=== PATIENT | female | born 2005 | race Caucasian/White ===

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

== ENCOUNTER 2023-03-31 15:30 | Emergency (ER) | payer OTHER ==
[2023-03-31 16:01] VITALS: RESP 18; TEMP 97.5
[2023-03-31] MEDS ORDERED: ONDANSETRON 4 MG/2 ML VIAL IVP STA ×2 (16:23→20:35)
[2023-03-31] MEDS ORDERED: SODIUM CHLORIDE 0.9% 1,000 ML IV STA (16:23)
[2023-03-31] MEDS ORDERED: PYRIDOXINE 100 MG/ML 1 ML VIAL IVP STA (16:23)
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
[2023-03-31 16:55] LABS: Basophils % (A) 0 %; Eosinophils % (A) 0 %; HCT 38.3 % (34.0-46.0); HGB 12.9 gm/dL (11.4-16.0); Lymphocytes # (A) 0.6 k/uL (1.0-4.8); Lymphocytes % (A) 4 %; MCHC 33.7 g/dL (31.0-37.0); MCV 82.9 fL (80.0-100.0); Mean Platelet Volume 7.9; Monocytes # (A) 0.4 k/uL (0-1.0); Monocytes % (A) 3 %; Neutrophils # (A) 14.3 k/uL (1.3-7.7); Neutrophils % (A) 92 %; Platelet Count 281 k/uL (150-450); RBC 4.62 m/uL (3.80-5.40); RDW 12.9 % (11.5-15.5); WBC 15.5 k/uL (4.0-11.0)
[2023-03-31] MEDS ORDERED: FAMOTIDINE 20 MG/2 ML VIAL IV STA (17:01)
[2023-03-31 17:05] LABS: ALT 30 U/L (4-34); AST 31 U/L (14-36); African American GFR (CKD) >90 (>60 ml/min/1.73 sqM); Alkaline Phosphatase 58 U/L (38-126); Anion Gap 11 mmol/L; Blood Urea Nitrogen 14 mg/dL (7-17); Calcium 9.8 mg/dL (8.4-10.2); Carbon Dioxide 23 mmol/L (22-30); Chloride 104 mmol/L (98-107); Glucose 179 mg/dL (74-99); Lipase 37 U/L (23-300); Non-African American GFR(CKD) >90 (>60 ml/min/1.73 sqM); Potassium 3.6 mmol/L (3.5-5.1); Sodium 138 mmol/L (137-145); Total Bilirubin 0.5 mg/dL (0.2-1.3); Total Protein 7.7 g/dL (6.3-8.2)
[2023-03-31 17:16] LABS: INR 1.1 (<1.2); Partial Thromboplastin Time 23.2 sec (22.0-30.0); Prothrombin Time 12.1 sec (10.0-12.5)
[2023-03-31] MEDS ORDERED: METOCLOPRAMIDE 5 MG/ML 2 ML VIAL IVP STA (18:00)
[2023-03-31] MEDS ORDERED: diphenhydrAMINE 50 MG/ML 1 ML VIAL IVP STA (18:00)
[2023-03-31 18:16] LABS: Appearance,Urine Cloudy (Clear); Bacteria,Urine Moderate /hpf; Bilirubin,Urine Negative (Negative); Blood,Urine Negative (Negative); Color,Urine Yellow; Glucose,Urine (UA) 3+ (Negative); Leukocyte Esterase,Urine Negative (Negative); Mucus,Urine Many /hpf; Nitrite,Urine Negative (Negative); PH, Urine 6.5 (5.0-8.0); Protein,Urine 2+ (Negative); RBC,Urine 2 /hpf (0-5); Specific Gravity,Urine 1.026 (1.001-1.035); Squamous Epithelial Cell,Urine 28 /hpf (0-4); Urobilinogen,Urine <2.0 mg/dL (<2.0); WBC,Urine 4 /hpf (0-5)
[2023-03-31 18:20] LABS: HCG,Quantitative Serum 44463.8 mIU/mL
[2023-03-31 18:40] LABS: Ketones,Urine 4+ (Negative)
[2023-03-31] MEDS ORDERED: SODIUM CHLORIDE 0.9% 500 ML 500 ML IV ONE (19:03)
[2023-03-31 20:55] VITALS: BP 130/68; PULSE 82
== END 2023-03-31 20:54 | disposition home or self-care (01) ==
LOC: EC 15:30
DX: O21.9 Vomiting of pregnancy, unspecified (principal); F17.290 Nicotine dependence, other tobacco product, uncomplicated; Z88.0 Allergy status to penicillin; Z91.011 Allergy to milk products; Z3A.08 8 weeks gestation of pregnancy; Z86.59 Personal history of other mental and behavioral disorders
CPT/HCPCS: 36415; 80053; 83690; 85025; 85610; 85730; 81001; 84702; 99284; 96374; 96375 ×4; 96361 ×3; J1200; J3415; J2765; J2405; J3490; 96376

== ENCOUNTER 2023-04-02 10:38 | Emergency (ER) | payer OTHER ==
[2023-04-02 11:01] VITALS: RESP 18
[2023-04-02] MEDS: METOCLOPRAMIDE 5 MG/ML 2 ML VIAL IVP STA (12:23)
[2023-04-02] MEDS: SODIUM CHLORIDE 0.9% 2,000 ML IV STA (12:23)
[2023-04-02 12:45] LABS: Basophils % (A) 0 %; Eosinophils % (A) 0 %; HCT 35.2 % (34.0-46.0); HGB 12.3 gm/dL (11.4-16.0); Lymphocytes # (A) 1.3 k/uL (1.0-4.8); Lymphocytes % (A) 10 %; MCH 28.5 pg (25.0-35.0); MCV 81.6 fL (80.0-100.0); Mean Platelet Volume 8.3; Monocytes # (A) 0.7 k/uL (0-1.0); Monocytes % (A) 5 %; Neutrophils # (A) 10.6 k/uL (1.3-7.7); Neutrophils % (A) 82 %; Platelet Count 241 k/uL (150-450); RBC 4.32 m/uL (3.80-5.40); RDW 13.1 % (11.5-15.5)
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
[2023-04-02 13:11] LABS: ALT 24 U/L (4-34); AST 23 U/L (14-36); African American GFR (CKD) >90 (>60 ml/min/1.73 sqM); Albumin 4.5 g/dL (3.5-5.0); Alkaline Phosphatase 58 U/L (38-126); Anion Gap 4 mmol/L; Blood Urea Nitrogen 10 mg/dL (7-17); Calcium 9.6 mg/dL (8.4-10.2); Carbon Dioxide 31 mmol/L (22-30); Chloride 103 mmol/L (98-107); Glucose 108 mg/dL (74-99); Non-African American GFR(CKD) >90 (>60 ml/min/1.73 sqM); Potassium 3.3 mmol/L (3.5-5.1); Sodium 138 mmol/L (137-145); Total Bilirubin 0.5 mg/dL (0.2-1.3); Total Protein 6.9 g/dL (6.3-8.2)
[2023-04-02 13:12] LABS: Appearance,Urine Turbid (Clear); Bacteria,Urine Few /hpf; Bilirubin,Urine Negative (Negative); Blood,Urine Negative (Negative); Budding Yeast,Urine Many /hpf; Color,Urine Light Yellow; Glucose,Urine (UA) Negative (Negative); Ketones,Urine 2+ (Negative); Leukocyte Esterase,Urine Negative (Negative); Mucus,Urine Rare /hpf; Nitrite,Urine Negative (Negative); PH, Urine 8.5 (5.0-8.0); Protein,Urine 1+ (Negative); Specific Gravity,Urine 1.016 (1.001-1.035); Squamous Epithelial Cell,Urine 2 /hpf (0-4); Urobilinogen,Urine <2.0 mg/dL (<2.0); WBC,Urine 1 /hpf (0-5)
[2023-04-02] MEDS: MAG HYDROX/AL HYDROX/SIMETH 30 ML CUP PO STA (13:50)
[2023-04-02 15:07] VITALS: BP 114/73; PULSE 65; TEMP 98.2
== END 2023-04-02 14:39 | disposition home or self-care (01) ==
LOC: EC 10:38
DX: O99.281 Endocrine, nutritional and metabolic diseases complicating pregnancy, first trimester (principal); E86.0 Dehydration; O99.331 Smoking (tobacco) complicating pregnancy, first trimester; F17.290 Nicotine dependence, other tobacco product, uncomplicated; Z88.0 Allergy status to penicillin; Z91.011 Allergy to milk products; Z86.59 Personal history of other mental and behavioral disorders; Z20.822 Contact with and (suspected) exposure to COVID-19; Z3A.01 Less than 8 weeks gestation of pregnancy
CPT/HCPCS: 99284; 96374; 96361 ×2; 36415; 80053; 85025; 81001; 87636; J2765

== ENCOUNTER 2023-04-26 13:12 | Emergency (ER) | payer OTHER ==
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
[2023-04-26 14:47] VITALS: RESP 18
[2023-04-26] MEDS: METOCLOPRAMIDE 5 MG/ML 2 ML VIAL IVP STA (15:39)
[2023-04-26] MEDS: SODIUM CHLORIDE 0.9% 2,000 ML IV ONE (15:39)
[2023-04-26 15:58] LABS: Basophils % (A) 0 %; Eosinophils % (A) 0 %; HCT 35.6 % (34.0-46.0); HGB 12.3 gm/dL (11.4-16.0); Lymphocytes # (A) 0.3 k/uL (1.0-4.8); Lymphocytes % (A) 3 %; MCH 29.4 pg (25.0-35.0); MCHC 34.6 g/dL (31.0-37.0); Monocytes # (A) 0.3 k/uL (0-1.0); Monocytes % (A) 4 %; Neutrophils # (A) 6.9 k/uL (1.3-7.7); Neutrophils % (A) 91 %; Platelet Count 207 k/uL (150-450); RBC 4.19 m/uL (3.80-5.40); RDW 13.7 % (11.5-15.5); WBC 7.6 k/uL (4.0-11.0)
[2023-04-26 16:07] LABS: African American GFR (CKD) >90 (>60 ml/min/1.73 sqM); Anion Gap 10 mmol/L; Blood Urea Nitrogen 10 mg/dL (7-17); Calcium 8.8 mg/dL (8.4-10.2); Carbon Dioxide 20 mmol/L (22-30); Chloride 106 mmol/L (98-107); Glucose 147 mg/dL (74-99); Non-African American GFR(CKD) >90 (>60 ml/min/1.73 sqM); Potassium 3.4 mmol/L (3.5-5.1); Sodium 136 mmol/L (137-145)
[2023-04-26] MEDS: ONDANSETRON 4 MG/2 ML VIAL IVP STA (16:34)
[2023-04-26] MEDS: FAMOTIDINE 20 MG/2 ML VIAL IV STA (16:36)
[2023-04-26] MEDS: MAG HYDROX/AL HYDROX/SIMETH 30 ML CUP PO STA (17:00)
[2023-04-26 17:26] VITALS: BP 115/79; PULSE 98; TEMP 98.4
== END 2023-04-26 17:04 | disposition home or self-care (01) ==
LOC: EC 13:12
DX: O99.511 Diseases of the respiratory system complicating pregnancy, first trimester (principal); J10.1 Influenza due to other identified influenza virus with other respiratory manifestations; O21.9 Vomiting of pregnancy, unspecified; O99.331 Smoking (tobacco) complicating pregnancy, first trimester; F17.290 Nicotine dependence, other tobacco product, uncomplicated; Z3A.12 12 weeks gestation of pregnancy; Z20.822 Contact with and (suspected) exposure to COVID-19; Z88.0 Allergy status to penicillin; Z91.011 Allergy to milk products
CPT/HCPCS: 80048; 85025; 87636; 99284; 96374; 96375 ×2; 96361; J2765; J2405; J3490; 36415

== ENCOUNTER 2023-04-29 10:22 | Emergency (ER) | payer OTHER ==
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
[2023-04-29 11:33] LABS: HCT 36.6 % (34.0-46.0); HGB 12.1 gm/dL (11.4-16.0); MCH 27.5 pg (25.0-35.0); MCV 83.3 fL (80.0-100.0); Mean Platelet Volume 7.9; Platelet Count 191 k/uL (150-450); RBC 4.39 m/uL (3.80-5.40); RDW 13.6 % (11.5-15.5); WBC 5.2 k/uL (4.0-11.0)
[2023-04-29] MEDS: METOCLOPRAMIDE 5 MG/ML 2 ML VIAL IVP STA (11:36)
[2023-04-29] MEDS: SODIUM CHLORIDE 0.9% 1,000 ML IV STA (11:38)
[2023-04-29 11:52] LABS: ALT 31 U/L (4-34); AST 31 U/L (14-36); African American GFR (CKD) >90 (>60 ml/min/1.73 sqM); Albumin 4.2 g/dL (3.5-5.0); Alkaline Phosphatase 51 U/L (38-126); Anion Gap 10 mmol/L; Blood Urea Nitrogen 7 mg/dL (7-17); Carbon Dioxide 22 mmol/L (22-30); Chloride 104 mmol/L (98-107); Glucose 98 mg/dL (74-99); Non-African American GFR(CKD) >90 (>60 ml/min/1.73 sqM); Potassium 3.4 mmol/L (3.5-5.1); Sodium 136 mmol/L (137-145); Total Bilirubin 0.4 mg/dL (0.2-1.3); Total Protein 6.7 g/dL (6.3-8.2)
[2023-04-29 11:58] LABS: Appearance,Urine Cloudy (Clear); Bacteria,Urine Occasional /hpf; Bilirubin,Urine Negative (Negative); Blood,Urine Negative (Negative); Color,Urine Yellow; Glucose,Urine (UA) Negative (Negative); Hyaline Casts,Urine 1 /lpf (0-2); Ketones,Urine 4+ (Negative); Leukocyte Esterase,Urine Negative (Negative); Mucus,Urine Many /hpf; Nitrite,Urine Negative (Negative); Protein,Urine 1+ (Negative); Specific Gravity,Urine 1.024 (1.001-1.035); Squamous Epithelial Cell,Urine 6 /hpf (0-4); Urobilinogen,Urine <2.0 mg/dL (<2.0); WBC,Urine 4 /hpf (0-5)
[2023-04-29] MEDS: ONDANSETRON 4 MG/2 ML VIAL IVP STA (12:30)
[2023-04-29] MEDS: diphenhydrAMINE 50 MG/ML 1 ML VIAL IVP STA (12:32)
[2023-04-29] MEDS: PYRIDOXINE 100 MG/ML 1 ML VIAL IVP STA (12:34)
--- NOTE | 2023-04-29 14:54 | US ---
EXAMINATION TYPE: Ultrasound OB <= 14 week fetus DATE OF EXAM: 04/29/2023 2:14 PM COMPARISON: NONE CLINICAL INDICATION: Female, 17 years old with history of abdominal cramping; Patient has the flu; N/ V EXAM PERFORMED: Transabdominal (TA) EXAM MEASUREMENTS: GESTATIONAL AGE / DATING Physician Established: Not yet established Dates by LMP: 01/29/23 (12 weeks/6 days) EDC: 11/05/23 Dates by First Scan: No previous this is first scan at this facility Dates by Current Scan for: (11 weeks/2 days) EDC: 11/16/23 MATERNAL ANATOMY Uterus: 11.2 x 8.7 x 8.5 cm Right Ovary: 2.5 x 2.4 x 1.9 cm Left Ovary: 2.9 x 2.1 x 1.8 cm Post CDS / Adnexa: wnl Presence of free fluid: no Presence of corpus luteal cyst: no Presence of subchorionic bleed: no GESTATION / SURVEY CRL: 4.45 (11weeks/2 days) MSD: WNL Yolk Sac (normal less than 6mm): 0.48 cm Heart Rate: 176bpm Rhythm: normal IUP: Viable IUP Date of LMP: 01/29/23 Beta HcG (if available): Not available at this time Were note an expanding amnion and likely early forming placenta and suspected small 1.6 cm perigestat ional bleed left lateral aspect. IMPRESSION: 1. Single live intrauterine with estimated gestational age of 12 weeks 6 days by LMP. Curre nt ultrasound biometry is discordant, smaller at 11 weeks 2 days. Correlate as to accuracy of recall of LMP. 2. Small left lateral perigestational bleed measuring 1.6 cm. 3. Borderline tachycardia at 176 BPM. Given these 2 findings, consider short interval follow-up . 4. Otherwise, complete survey recommended at 18-20 weeks.
[2023-04-29 15:56] VITALS: BP 102/62; PULSE 91; RESP 18; TEMP 98.5
== END 2023-04-29 15:43 | disposition home or self-care (01) ==
LOC: EC 10:22
DX: O21.9 Vomiting of pregnancy, unspecified (principal); O99.511 Diseases of the respiratory system complicating pregnancy, first trimester; J11.1 Influenza due to unidentified influenza virus with other respiratory manifestations; O99.331 Smoking (tobacco) complicating pregnancy, first trimester; F17.290 Nicotine dependence, other tobacco product, uncomplicated; Z86.59 Personal history of other mental and behavioral disorders; Z3A.12 12 weeks gestation of pregnancy; Z88.0 Allergy status to penicillin; Z91.011 Allergy to milk products
CPT/HCPCS: 36415; 80053; 85027; 81001; 84702; 76801; 99285; 96374; 96375 ×3; 96361 ×2; J1200; J3415; J2765; J2405

== ENCOUNTER 2023-05-29 17:15 | Emergency (ER) | payer OTHER ==
[2023-05-29 18:45] LABS: Basophils % (A) 0 %; Eosinophils % (A) 0 %; HCT 40.7 % (34.0-46.0); HGB 13.2 gm/dL (11.4-16.0); Lymphocytes % (A) 7 %; MCH 27.9 pg (25.0-35.0); MCHC 32.5 g/dL (31.0-37.0); MCV 85.9 fL (80.0-100.0); Mean Platelet Volume 7.7; Monocytes # (A) 0.4 k/uL (0-1.0); Monocytes % (A) 2 %; Neutrophils % (A) 89 %; Platelet Count 249 k/uL (150-450); RBC 4.74 m/uL (3.80-5.40); WBC 15.7 k/uL (4.0-11.0)
[2023-05-29 18:59] LABS: ALT 18 U/L (4-34); AST 22 U/L (14-36); African American GFR (CKD) >90 (>60 ml/min/1.73 sqM); Albumin 4.8 g/dL (3.5-5.0); Alkaline Phosphatase 72 U/L (38-126); Anion Gap 13 mmol/L; Blood Urea Nitrogen 10 mg/dL (7-17); Calcium 9.7 mg/dL (8.4-10.2); Carbon Dioxide 18 mmol/L (22-30); Chloride 105 mmol/L (98-107); Glucose 123 mg/dL (74-99); Non-African American GFR(CKD) >90 (>60 ml/min/1.73 sqM); Sodium 136 mmol/L (137-145); Total Bilirubin 0.4 mg/dL (0.2-1.3); Total Protein 7.8 g/dL (6.3-8.2)
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
[2023-05-29 19:39] LABS: HCG,Quantitative Serum 29553.3 mIU/mL
[2023-05-29] MEDS: ONDANSETRON 4 MG/2 ML VIAL IVP STA (19:44)
[2023-05-29] MEDS: DEXTROSE 5%-0.9% NACL 1,000 ML IV SCH (20:17)
--- NOTE | 2023-05-29 20:46 | US ---
EXAMINATION TYPE: US OB >= 14 wk fetus DATE OF EXAM: 05/29/2023 COMPARISON: None CLINICAL INDICATION: Female, 17 years old with history of 15 weeks . abdominal pain; Vomiting . TECHNIQUE: Transabdominal (TA) ultrasound of gravid uterus GESTATIONAL AGE / DATING Physician Established: ( weeks/ days) EDC: Dates by LMP: ( weeks/ days) EDC: Dates by First Scan: ( weeks/ days) EDC: Dates by Current Scan: (15 weeks/4 days) EDC: 11/16/2023 Beta HCG (if available): SURVEY IUP: Single PLACENTA: Anterior PREVIA: No Previa ELISHA: 13.1 cm Normal CERVICAL LENGTH (transabdominal: norm > 3.0cm): 3.4 cm, and appears closed BIOMETRY LIE: Transverse with head maternal left BPD: 2.9 cm 15 weeks / 2 days HC: 11.1 cm 15 weeks / 3 days AC: 9.7 cm 15 weeks / 5 days FL: 1.7 cm 15 weeks / 1 days ESTIMATED WEIGHT IN GRAMS: 124.2 grams ESTIMATED WEIGHT IN LBS/OZ: 0 lbs. 4 oz. WEIGHT PERCENTAGE BASED ON ESTABLISHED DATES: 49% HC/AC: 1.2 Normal FL/AC: 17.8 HEART RATE: 155 bpm RHYTHM: Normal ++ No detailed anatomic survey is performed at this time; recommend dedicated anatomy scan when appropriate. Possible perigestational hematoma = 5.2 x 4.3 x 1.1cm IMPRESSION: 1. Single, live intrauterine measuring 15 weeks 4 days, CATHERINE 11/16/2023. 2. Perigestational hematoma is suggested. Recommend follow-up.
[2023-05-29] MEDS: ACETAMINOPHEN TAB 325 MG TAB PO STA (21:16)
[2023-05-29] MEDS: METOCLOPRAMIDE 5 MG/ML 2 ML VIAL IVP STA (21:17)
[2023-05-29 21:39] LABS: Appearance,Urine Clear (Clear); Bacteria,Urine Occasional /hpf; Bilirubin,Urine Negative (Negative); Blood,Urine Negative (Negative); Color,Urine Light Yellow; Glucose,Urine (UA) 4+ (Negative); Leukocyte Esterase,Urine Negative (Negative); Mucus,Urine Few /hpf; Nitrite,Urine Negative (Negative); Protein,Urine 1+ (Negative); RBC,Urine 2 /hpf (0-5); Specific Gravity,Urine 1.034 (1.001-1.035); Squamous Epithelial Cell,Urine 4 /hpf (0-4); Urobilinogen,Urine <2.0 mg/dL (<2.0); WBC,Urine 2 /hpf (0-5)
[2023-05-29 21:41] LABS: Ketones,Urine 4+ (Negative)
[2023-05-29] MEDS: PROMETHAZINE SUPPOSITORY 25 MG SUPP RECTAL STA (22:12)
[2023-05-29 22:22] VITALS: RESP 16
[2023-05-30 00:28] VITALS: BP 103/69; PULSE 100; TEMP 98.3
== END 2023-05-30 00:26 | disposition home or self-care (01) ==
LOC: EC 17:15
DX: O99.512 Diseases of the respiratory system complicating pregnancy, second trimester (principal); J11.1 Influenza due to unidentified influenza virus with other respiratory manifestations; Z88.0 Allergy status to penicillin; Z91.011 Allergy to milk products; Z3A.15 15 weeks gestation of pregnancy
CPT/HCPCS: 36415; 80053; 85025; 81001; 84702; 87636; 76805; 99284; 96374; 96375; 96361 ×4; J2765; J2405

== ENCOUNTER 2023-05-30 11:29 | Observation (INO) | payer OTHER ==
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
[2023-05-30] MEDS: ONDANSETRON 4 MG/2 ML VIAL IVP STA (12:15)
[2023-05-30] MEDS: SODIUM CHLORIDE 0.9% 2,000 ML IV STA (12:15)
[2023-05-30 12:41] LABS: Basophils % (A) 0 %; Eosinophils % (A) 0 %; HCT 35.1 % (34.0-46.0); HGB 12.1 gm/dL (11.4-16.0); Lymphocytes # (A) 0.9 k/uL (1.0-4.8); Lymphocytes % (A) 5 %; MCH 28.7 pg (25.0-35.0); MCHC 34.5 g/dL (31.0-37.0); MCV 83.2 fL (80.0-100.0); Monocytes # (A) 0.6 k/uL (0-1.0); Monocytes % (A) 3 %; Neutrophils # (A) 18.2 k/uL (1.3-7.7); Neutrophils % (A) 91 %; Platelet Count 283 k/uL (150-450); RBC 4.22 m/uL (3.80-5.40)
[2023-05-30 12:51] LABS: AST 25 U/L (14-36); African American GFR (CKD) >90 (>60 ml/min/1.73 sqM); Albumin 4.7 g/dL (3.5-5.0); Alkaline Phosphatase 59 U/L (38-126); Anion Gap 12 mmol/L; Blood Urea Nitrogen 15 mg/dL (7-17); Carbon Dioxide 24 mmol/L (22-30); Chloride 102 mmol/L (98-107); Glucose 144 mg/dL (74-99); Non-African American GFR(CKD) >90 (>60 ml/min/1.73 sqM); Potassium 3.2 mmol/L (3.5-5.1); Sodium 138 mmol/L (137-145); Total Bilirubin 0.3 mg/dL (0.2-1.3); Total Protein 7.4 g/dL (6.3-8.2)
[2023-05-30 12:57] LABS: ALT 22 U/L (4-34)
[2023-05-30 13:13] LABS: Amorphous Sediment,Urine Rare /hpf; Appearance,Urine Cloudy (Clear); Bilirubin,Urine Negative (Negative); Blood,Urine Negative (Negative); Color,Urine Light Yellow; Glucose,Urine (UA) 1+ (Negative); Ketones,Urine 1+ (Negative); Leukocyte Esterase,Urine Negative (Negative); Mucus,Urine Few /hpf; Nitrite,Urine Negative (Negative); Protein,Urine 1+ (Negative); RBC,Urine <1 /hpf (0-5); Specific Gravity,Urine 1.025 (1.001-1.035); Squamous Epithelial Cell,Urine 1 /hpf (0-4); Urobilinogen,Urine <2.0 mg/dL (<2.0); WBC,Urine 6 /hpf (0-5)
[2023-05-30 13:37] LABS: HCG,Quantitative Serum 27622.8 mIU/mL
[2023-05-30] MEDS: METOCLOPRAMIDE 5 MG/ML 2 ML VIAL IVP STA (13:59)
[2023-05-30] MEDS ORDERED: NALOXONE 0.4 MG/ML 1 ML VIAL IV PRN (14:40)
[2023-05-30] MEDS: SODIUM CHLORIDE 0.9% 1,000 ML IV SCH (15:08)
[2023-05-30] MEDS: OSELTAMIVIR 75 MG CAP PO STA (15:08)
[2023-05-30] MEDS: CALCIUM CARBONATE 500 MG CHEWABLE PO PRN (18:26)
[2023-05-30] MEDS: FAMOTIDINE 20 MG/2 ML VIAL IV SCH (20:04)
[2023-05-30] MEDS: ONDANSETRON 4 MG/2 ML VIAL IVP PRN (21:09)
[2023-05-31] MEDS: METOCLOPRAMIDE 5 MG/ML 2 ML VIAL IVP STA (07:59)
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
[2023-05-31] MEDS: OSELTAMIVIR 75 MG CAP PO SCH ×2 (09:42→09:50)
[2023-05-31] MEDS: diphenhydrAMINE 50 MG/ML 1 ML VIAL IVP STA (09:52)
[2023-05-31 16:46] VITALS: RESP 16
[2023-05-31] MEDS ORDERED: FAMOTIDINE 20 MG/2 ML VIAL IV SCH (21:00)
[2023-05-31] MEDS: ACETAMINOPHEN TAB 500 MG TAB PO PRN (21:29)
[2023-05-31] MEDS: diphenhydrAMINE 50 MG/ML 1 ML VIAL IVP PRN (23:49)
--- NOTE | 2023-06-01 08:54 | P.DS ---
Providers Date of admission: 05/30/23 16:19 Expected date of discharge: 06/01/23 Attending physician: Kathy Monson Primary care physician: Jean-Claude Bryant - Discharge Diagnosis(es) (1) 15 weeks gestation of Current Visit: Yes Status: Acute (2) Influenza A Current Visit: Yes Status: Acute Hospital Course: The patient is a 17-year-old 1 para 0 admitted at approximately 16 weeks of gestation after presenting to the emergency room with intractable nausea and vomiting and found with influenza A. She is admitted for IV fluid management and antiemetics. She was started on Tamiflu immediately and, over the course of the next 1 to 2 days had significant resolution of her symptoms. This morning, she is feeling significantly better and is tolerating a regular diet as well as able to hydrate orally without difficulty. She is deemed stable for discharge on hospital day #3 and was discharged home to follow-up in the office as previously scheduled in approximately 2 weeks. She is discharged home on Tamiflu 75 mg twice daily for a total of 7 days, approximately 5 more days of medication provided. She is to continue with vitamins and all other medications taken during the . She has had no complaints and has had documentation of wellbeing by ultrasound in the emergency room. Her initial white count was moderately elevated and is pending this morning. Instructions included calling for any significant increase in symptoms but to continue to hydrate orally. Procedures: #1. IV hydration #2. IV antiemetics Patient Condition at Discharge: Good Plan - Discharge Summary New Discharge Prescriptions: No Action Ondansetron Odt [Zofran Odt] 4 mg PO DIRECTED PRN PRN Reason: Nausea Oseltamivir [Tamiflu] 75 mg PO DIRECTED Promethazine Suppository [Phenergan] 25 mg RECTAL DIRECTED PRN PRN Reason: Nausea Discharge Medication List Ondansetron Odt [Zofran Odt] 4 mg PO DIRECTED PRN 05/30/23 [History] Oseltamivir [Tamiflu] 75 mg PO DIRECTED 05/30/23 [History] Promethazine Suppository [Phenergan] 25 mg RECTAL DIRECTED PRN 05/30/23 [History] Follow up Appointment(s)/Referral(s): Jean-Claude Bryant MD [Primary Care Provider] - 1-2 Days Fam Haynes MD [STAFF PHYSICIAN] - 2 Weeks Discharge Disposition: HOME SELF-CARE
[2023-06-01 09:25] VITALS: BP 109/71; PULSE 77; TEMP 97.7
== END 2023-06-01 11:00 | disposition home or self-care (01) ==
LOC: EC 11:29 → 6NMEDSUR 16:19
PROVIDERS: ADMIT Obstetrics & Gynecology; ATTEND Obstetrics & Gynecology
DX: O99.512 Diseases of the respiratory system complicating pregnancy, second trimester (principal); J10.1 Influenza due to other identified influenza virus with other respiratory manifestations; O21.9 Vomiting of pregnancy, unspecified; O99.342 Other mental disorders complicating pregnancy, second trimester; F41.9 Anxiety disorder, unspecified; Z3A.15 15 weeks gestation of pregnancy; Z87.891 Personal history of nicotine dependence; Z88.0 Allergy status to penicillin
CPT/HCPCS: 96376 ×3; 96361 ×3; 96375 ×3; 96374; 99285; 36415; 80053; 83605; 85025; 81001; 84702; 87040; G0378 ×3; J1200; J2765 ×2; J2405 ×3; J3490 ×2

== ENCOUNTER 2023-06-02 13:32 | Emergency (ER) | payer OTHER ==
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
[2023-06-02] MEDS: SODIUM CHLORIDE 0.9% 1,000 ML IV STA (14:33)
[2023-06-02] MEDS: ONDANSETRON 4 MG/2 ML VIAL IVP STA (14:37)
[2023-06-02] MEDS: diphenhydrAMINE 50 MG/ML 1 ML VIAL IVP STA (14:37)
[2023-06-02 14:46] LABS: HCT 33.8 % (34.0-46.0); HGB 11.3 gm/dL (11.4-16.0); MCH 28.3 pg (25.0-35.0); MCHC 33.5 g/dL (31.0-37.0); MCV 84.7 fL (80.0-100.0); Platelet Count 215 k/uL (150-450); RDW 13.6 % (11.5-15.5); WBC 10.5 k/uL (4.0-11.0)
[2023-06-02 15:07] LABS: Amorphous Sediment,Urine Rare /hpf; Appearance,Urine Cloudy (Clear); Bacteria,Urine Many /hpf; Bilirubin,Urine Negative (Negative); Blood,Urine Negative (Negative); Color,Urine Light Yellow; Glucose,Urine (UA) Negative (Negative); Ketones,Urine 2+ (Negative); Leukocyte Esterase,Urine Negative (Negative); Mucus,Urine Few /hpf; Nitrite,Urine Negative (Negative); Protein,Urine Trace (Negative); RBC,Urine <1 /hpf (0-5); Specific Gravity,Urine 1.017 (1.001-1.035); Squamous Epithelial Cell,Urine 5 /hpf (0-4); Urobilinogen,Urine <2.0 mg/dL (<2.0); WBC,Urine 3 /hpf (0-5)
[2023-06-02 15:08] LABS: ALT 25 U/L (4-34); AST 23 U/L (14-36); African American GFR (CKD) >90 (>60 ml/min/1.73 sqM); Albumin 3.9 g/dL (3.5-5.0); Alkaline Phosphatase 45 U/L (38-126); Anion Gap 8 mmol/L; Blood Urea Nitrogen 5 mg/dL (7-17); Calcium 8.8 mg/dL (8.4-10.2); Carbon Dioxide 21 mmol/L (22-30); Chloride 106 mmol/L (98-107); Glucose 91 mg/dL (74-99); Non-African American GFR(CKD) >90 (>60 ml/min/1.73 sqM); Sodium 135 mmol/L (137-145); Total Bilirubin 0.5 mg/dL (0.2-1.3); Total Protein 6.4 g/dL (6.3-8.2)
[2023-06-02 15:12] LABS: Potassium 3.6 mmol/L (3.5-5.1)
[2023-06-02] MEDS: CALCIUM CARBONATE 500 MG CHEWABLE PO PRN (15:21)
[2023-06-05 00:30] VITALS: BP 106/65; PULSE 97; RESP 18; TEMP 97.9
== END 2023-06-02 16:44 ==
LOC: EC 13:32
DX: O21.9 Vomiting of pregnancy, unspecified (principal); O99.332 Smoking (tobacco) complicating pregnancy, second trimester; F17.290 Nicotine dependence, other tobacco product, uncomplicated; Z88.0 Allergy status to penicillin; Z91.011 Allergy to milk products; Z3A.16 16 weeks gestation of pregnancy
CPT/HCPCS: 99284; 96374; 96375; 96361; 36415; 80053; 83605; 85027; 81001; J1200; J2405

== ENCOUNTER 2023-07-26 20:05 | Outpatient (CLI) | payer OTHER ==
[2023-07-26] MEDS: LACTATED RINGERS 1,000 ML IV ONE (20:10)
[2023-07-26] MEDS: ONDANSETRON 4 MG/2 ML VIAL IVP STA (20:32)
[2023-07-26] MEDS: FAMOTIDINE 20 MG/2 ML VIAL IV SCH (20:33)
[2023-07-26] MEDS: CAPSAICIN 0.025% CREAM 60 GM TUBE TOPICAL SCH (21:10)
[2023-07-26] MEDS ORDERED: CAPSAICIN 0.025% CREAM 60 GM TUBE TOPICAL SCH (22:00)
[2023-07-26 22:03] LABS: Appearance,Urine Clear (Clear); Bilirubin,Urine Negative (Negative); Blood,Urine Negative (Negative); Color,Urine Light Yellow; Glucose,Urine (UA) 2+ (Negative); Leukocyte Esterase,Urine Negative (Negative); Nitrite,Urine Negative (Negative); PH, Urine 6.5 (5.0-8.0); Protein,Urine Trace (Negative); Specific Gravity,Urine 1.022 (1.001-1.035); Urobilinogen,Urine <2.0 mg/dL (<2.0)
[2023-07-26 22:08] LABS: Ketones,Urine 4+ (Negative)
[2023-07-26 23:08] VITALS: BP 112/82; PULSE 102; RESP 16; TEMP 97.2
--- NOTE | 2023-09-14 14:56 | P.MSEPDOC ---
Presenting Problems - Arrival Data Date of Arrival on Unit: 07/26/23 Time of Arrival on Unit: 20:05 Mode of Transport: Wheelchair - Complaint OB-Reason for Admission/Chief Complaint: Hyperemesis, Acute Nausea/Vomiting Comment: Patient arrived to triage with nausea that started this morning. Patient denies diarrhea. Patient states she has had slight cramping in abdominal pain is 2/10. Patient states that her mother was sick earlier in the day. Patient admits to marijuana smoking and cyclic vomiting in the past. Medical History - Information : 1 Para: 0 - Gestational Age Gestational Age by CATHERINE (wks/days): 23 Weeks and 4 Days Review of Systems - Review of Systems Constitutional: No problems Breast: No problems ENT: No problems Cardiovascular: No problems Respiratory: No problems Gastrointestinal: Pain Genitourinary: No problems Musculoskeletal: No problems Neurological: No problems Skin: No problems Vital Signs - Temperature Temperature: 97.2 F Temperature Source: Temporal Artery Scan - Pulse Pulse Oximetery Pulse Rate: 102 Pulse Assessment Method: Pulse Oximetry - Respirations Respiratory Rate: 16 Oxygen Delivery Method: Room Air - Blood Pressure Right Arm Blood Pressure: 112/82 Blood Pressure Mean: 92 Medical Screen Scoring - Assessment - Baby A Baseline FHR: 150 Heart Rate - NICHD Category: Category I (Normal) Physician Notification - Physician Notified Physician Notified Date: 07/26/23 Physician Notified Time: 20:12 Physician: Yaritza Esposito New Order Received: Yes - Notification Comment Comment: Radha HICKS called and talked to Dr. Esposito- pt. information given, orders for UA, 1 Liter LR bolus, 4mg IVP Zofran, and 20mg Pepcid IVP at this time RN spoke with Dr. Esposito regarding patient vomitng after admin of zofran and pepcid IV. Dr. Esposito aware of marijuana use and patients history of cyclic vomiting. 2100 Capsaicin Cream ordered to be placed on epigastric area. RN spoke with Dr. Esposito regarding patient vomitng after admin of zofran and pepcid IV. Dr. Esposito aware of marijuana use and patients history of cyclic vomiting. Capsaicin Cream ordered to be placed on epigastric area. 2200Drouillard aware of critical urine lab, patient is in bed sleeping at this time. Patient stated she felt much better. Dr. Esposito ordered Patient to be discharged home. significant other at bedside patient and significant other verbally aware of discharge instructions and when to seek medical attention. Maternal Triage Index - Non-Urgent/Priority 4 Non-Urgent Priority 4: Yes Criteria Met for Priority 4: Patient arrived to triage with nausea that started this morning. Patient denies diarrhea. Patient states she has had slight cramping in abdominal pain is 2/10. Patient states that her mother was sick earlier in the day. Patient admits to marijuana smoking and cyclic vomiting in the past. Disposition - Disposition OB Disposition: Discharge to home Discharge Date: 07/26/23 Discharge Time: 22:15 I agree with the RN Medical Screening Exam: Yes Physician's MSE Comment: I have neither seen nor examined the patient Case reviewed; plan agreed upon as documented in EMR&OBIX.: Yes Diagnosis: MATERNAL CARE FOR PROBLEM, UNSP, THIRD * DO NOT USE *
== END 2023-07-26 22:15 | disposition home or self-care (01) ==
LOC: FBPOP 20:05
PROVIDERS: ATTEND Obstetrics & Gynecology
DX: O21.9 Vomiting of pregnancy, unspecified (principal); Z3A.23 23 weeks gestation of pregnancy; Z88.0 Allergy status to penicillin; Z91.011 Allergy to milk products
CPT/HCPCS: 96361; 96374; 96375; 81003; G0463; J2405; J3490; 36415; 99214

== ENCOUNTER 2023-07-27 09:16 | Outpatient (CLI) | payer OTHER ==
[2023-07-27 09:55] LABS: Appearance,Urine Clear (Clear); Bilirubin,Urine Negative (Negative); Blood,Urine Negative (Negative); Color,Urine Light Yellow; Glucose,Urine (UA) 4+ (Negative); Leukocyte Esterase,Urine Negative (Negative); Nitrite,Urine Negative (Negative); Protein,Urine Trace (Negative); Specific Gravity,Urine 1.027 (1.001-1.035); Urobilinogen,Urine <2.0 mg/dL (<2.0)
[2023-07-27 10:05] LABS: Cocaine Screen,Urine Not Detected (NotDetected); Opiate Screen,Urine Not Detected (NotDetected); Phencyclidine Screen,Urine Not Detected (NotDetected); Urn Cannabinoid Scrn Detected (NotDetected)
[2023-07-27 10:06] LABS: Amphetamine Screen,Urine Not Detected (NotDetected); Barbiturate Screen,Urine Not Detected (NotDetected); Benzodiazepines Screen,Urine Not Detected (NotDetected); Methadone Screen, Urine Not Detected (NotDetected); Oxycodone Screen, Urine Not Detected (NotDetected); Tricyclic Antidepressant,Urine Not Detected (NotDetected)
[2023-07-27] MEDS: LACTATED RINGERS 1,000 ML IV ONE (10:09)
[2023-07-27] MEDS: ONDANSETRON 4 MG/2 ML VIAL IVP STA (10:16)
[2023-07-27] MEDS: PANTOPRAZOLE 40 MG/10 ML VIAL IVP ONE (10:23)
[2023-07-27 10:38] LABS: Ketones,Urine 4+ (Negative)
[2023-07-27 13:30] VITALS: BP 117/70; PULSE 90; RESP 18; TEMP 98.3
--- NOTE | 2023-07-31 09:46 | P.MSEPDOC ---
Presenting Problems - Arrival Data Date of Arrival on Unit: 07/27/23 Time of Arrival on Unit: 09:16 Mode of Transport: Ambulatory - Complaint OB-Reason for Admission/Chief Complaint: Acute Nausea/Vomiting Comment: Pt with hx marijuana use. cyclic vomiting. Medical History - Information : 1 Para: 0 Term: 0 : 0 Abortions: Spontaneous or Elective: 0 Number of Living Children: 0 - Gestational Age Gestational Age by CATHERINE (wks/days): 23 Weeks and 5 Days - History Complications: Smoker Comment: + marijuana on UDS today Review of Systems - Review of Systems Constitutional: No problems Breast: No problems ENT: No problems Cardiovascular: No problems Respiratory: No problems Gastrointestinal: No problems Genitourinary: No problems Musculoskeletal: No problems Neurological: No problems Skin: No problems Vital Signs - Temperature Temperature: 98.3 F Temperature Source: Temporal Artery Scan - Pulse Right Sitting Brachial Pulse Rate: 90 Pulse Assessment Method: Pulse Oximetry - Respirations Respiratory Rate: 18 Oxygen Delivery Method: Room Air O2 Sat by Pulse Oximetry: 99 - Blood Pressure Right Arm Sitting Blood Pressure: 117/70 Blood Pressure Mean: 85 Blood Pressure Source: Automatic Cuff Medical Screen Scoring - Uterine Contractions Resting: Soft to palpation - Assessment - Baby A Baseline FHR: 145 Physician Notification - Physician Notified Physician Notified Date: 07/27/23 Physician Notified Time: 12:00 Physician: Fam Haynes Order Received: Yes (dc home. Follow up as scheduled.) Maternal Triage Index - Maternal Triage Index Presenting for scheduled procedure w/no complaint: No - Stat/Priority 1 Stat Priority 1: No - Urgent/Priority 2 Urgent Priority 2: No - Prompt/Priority 3 Prompt Priority 3: No - Non-Urgent/Priority 4 Non-Urgent Priority 4: Yes Criteria Met for Priority 4: vomiting. treated in triage last night for same complaints. IV fluids x3 liters today, protonix IV, Zofran IV. pt dc with script for po Zofran. Disposition - Disposition OB Disposition: Discharge to home, Written follow up instructions reviewed Discharge Date: 07/27/23 Discharge Time: 12:15 I agree with the RN Medical Screening Exam: Yes Physician's MSE Comment: I have neither seen nor examined the patient. Case reviewed; plan agreed upon as documented in EMR&OBIX.: Yes Diagnosis: RELATED CONDITIONS, UNSPECIFIED, SECOND TRIMESTER
== END 2023-07-27 12:15 | disposition home or self-care (01) ==
LOC: FBPOP 09:16
PROVIDERS: ATTEND Obstetrics & Gynecology
DX: O21.9 Vomiting of pregnancy, unspecified (principal); O99.332 Smoking (tobacco) complicating pregnancy, second trimester; F17.200 Nicotine dependence, unspecified, uncomplicated; Z3A.23 23 weeks gestation of pregnancy; Z88.0 Allergy status to penicillin; Z91.011 Allergy to milk products
CPT/HCPCS: 96361; 96374; 96375; 81003; 80306; G0463; J2405; C9113; 99214

== ENCOUNTER 2023-09-13 13:27 | Outpatient (CLI) | payer OTHER ==
[2023-09-13] MEDS: FAMOTIDINE 20 MG/2 ML VIAL IV STA (14:28)
[2023-09-13] MEDS: LACTATED RINGERS 1,000 ML IV ONE (14:28)
[2023-09-13] MEDS: CAPSAICIN 0.025% CREAM 60 GM TUBE TOPICAL SCH (15:08)
[2023-09-13] MEDS: ONDANSETRON 4 MG/2 ML VIAL IVP STA (15:42)
[2023-09-13 17:10] VITALS: BP 129/58; PULSE 95; RESP 18; TEMP 97.9
--- NOTE | 2023-09-13 22:06 | P.MSEPDOC ---
Presenting Problems - Arrival Data Date of Arrival on Unit: 09/13/23 Time of Arrival on Unit: 13:27 Mode of Transport: Ambulatory - Complaint OB-Reason for Admission/Chief Complaint: Acute Nausea/Vomiting Comment: pt presents to triage for n/v since 299 this am Medical History - Information : 1 Para: 0 Term: 0 : 0 Abortions: Spontaneous or Elective: 0 Number of Living Children: 0 - Gestational Age Gestational Age by CATHERINE (wks/days): 30 Weeks and 4 Days - History Comment: marijuana use Review of Systems - Review of Systems Constitutional: No problems Breast: No problems ENT: No problems Cardiovascular: No problems Respiratory: No problems Gastrointestinal: No problems Genitourinary: No problems Musculoskeletal: No problems Neurological: No problems Skin: No problems Vital Signs - Temperature Temperature: 97.9 F Temperature Source: Temporal Artery Scan - Pulse Right Brachial Pulse Rate: 95 Pulse Assessment Method: Automatic Cuff - Respirations Respiratory Rate: 18 Oxygen Delivery Method: Room Air - Blood Pressure Right Arm Blood Pressure: 129/58 Blood Pressure Mean: 81 Blood Pressure Source: Automatic Cuff Medical Screen Scoring - Assessment - Baby A Baseline FHR: 135 Heart Rate - NICHD Category: Category I (Normal) NST: Reactive Physician Notification - Physician Notified Physician Notified Date: 09/13/23 Physician Notified Time: 16:44 Physician: Kathy Monson - Notification Comment Comment: pt given 2 liters of LR, dose of pepcid and zofran, decreased vomiting, still nauseous, pt discharged home with instructions to drink gatorade to replace electrolytes, and follow up in the office on thursday at scheduled appt with Dr. Haynes, also instructed to stop using marijuana as it makes her n/v worse, Maternal Triage Index - Maternal Triage Index Presenting for scheduled procedure w/no complaint: No - Stat/Priority 1 Stat Priority 1: No - Urgent/Priority 2 Urgent Priority 2: Yes Provider Notified: Kathy Monson Provider Notified Time: 13:55 Criteria Met for Priority 2: pt presents to triage for n/v since 299 this am Disposition - Disposition OB Disposition: Triage, Discharge to home, Written follow up instructions reviewed Discharge Date: 09/13/23 Discharge Time: 16:50 I agree with the RN Medical Screening Exam: Yes Case reviewed; plan agreed upon as documented in EMR&OBIX.: Yes Diagnosis: NAUSEA WITH VOMITING, UNSPECIFIED
== END 2023-09-13 16:50 | disposition home or self-care (01) ==
LOC: FBPOP 13:27
PROVIDERS: ATTEND Obstetrics & Gynecology
DX: O21.9 Vomiting of pregnancy, unspecified (principal); O99.323 Drug use complicating pregnancy, third trimester; F12.90 Cannabis use, unspecified, uncomplicated; Z3A.30 30 weeks gestation of pregnancy; Z88.0 Allergy status to penicillin; Z91.011 Allergy to milk products
CPT/HCPCS: 59025; 96361; 96374; 96375; G0463; J2405; J3490; 99214

== ENCOUNTER 2023-09-15 12:38 | Outpatient (CLI) | payer OTHER ==
[2023-09-15] MEDS: LACTATED RINGERS 1,000 ML BAG IV STA (13:20)
[2023-09-15] MEDS: FAMOTIDINE 20 MG/2 ML VIAL IV STA (13:36)
[2023-09-15] MEDS: ONDANSETRON 4 MG/2 ML VIAL IVP STA (13:37)
[2023-09-15 13:41] LABS: Basophils % (A) 0 %; Eosinophils % (A) 0 %; HCT 34.6 % (34.0-46.0); HGB 11.5 gm/dL (11.4-16.0); Lymphocytes # (A) 1.5 k/uL (1.0-4.8); Lymphocytes % (A) 9 %; MCH 27.9 pg (25.0-35.0); MCHC 33.4 g/dL (31.0-37.0); MCV 83.6 fL (80.0-100.0); Mean Platelet Volume 7.5; Monocytes # (A) 0.7 k/uL (0-1.0); Monocytes % (A) 5 %; Neutrophils # (A) 13.1 k/uL (1.3-7.7); Neutrophils % (A) 84 %; Platelet Count 225 k/uL (150-450); RBC 4.14 m/uL (3.80-5.40); RDW 13.2 % (11.5-15.5); WBC 15.6 k/uL (4.0-11.0)
[2023-09-15] MEDS: LACTATED RINGERS 1,000 ML IV ONE ×2 (13:43→14:45)
[2023-09-15 13:56] LABS: ALT 17 U/L (4-34); AST 23 U/L (14-36); African American GFR (CKD) >90 (>60 ml/min/1.73 sqM); Albumin 4.2 g/dL (3.5-5.0); Alkaline Phosphatase 92 U/L (38-126); Anion Gap 8 mmol/L; Blood Urea Nitrogen 9 mg/dL (7-17); Calcium 9.3 mg/dL (8.4-10.2); Carbon Dioxide 27 mmol/L (22-30); Chloride 98 mmol/L (98-107); Glucose 106 mg/dL (74-99); Non-African American GFR(CKD) >90 (>60 ml/min/1.73 sqM); Potassium 2.9 mmol/L (3.5-5.1); Sodium 133 mmol/L (137-145); Total Bilirubin 0.6 mg/dL (0.2-1.3); Total Protein 6.5 g/dL (6.3-8.2)
[2023-09-15 15:47] LABS: Amorphous Sediment,Urine Occasional /hpf; Appearance,Urine Cloudy (Clear); Bilirubin,Urine Negative (Negative); Blood,Urine Negative (Negative); Color,Urine Light Yellow; Glucose,Urine (UA) Trace (Negative); Ketones,Urine 3+ (Negative); Leukocyte Esterase,Urine Negative (Negative); Mucus,Urine Occasional /hpf; Nitrite,Urine Negative (Negative); Protein,Urine Trace (Negative); RBC,Urine <1 /hpf (0-5); Specific Gravity,Urine 1.014 (1.001-1.035); Squamous Epithelial Cell,Urine 1 /hpf (0-4); Urobilinogen,Urine <2.0 mg/dL (<2.0); WBC,Urine 3 /hpf (0-5)
[2023-09-15] MEDS: METOCLOPRAMIDE 5 MG/ML 2 ML VIAL IVP STA (16:05)
[2023-09-15 16:44] VITALS: BP 129/68; PULSE 123; RESP 17; TEMP 98.1
--- NOTE | 2023-09-18 09:49 | P.MSEPDOC ---
Presenting Problems - Arrival Data Date of Arrival on Unit: 09/15/23 Time of Arrival on Unit: 12:38 Mode of Transport: Ambulatory - Complaint OB-Reason for Admission/Chief Complaint: Acute Nausea/Vomiting Comment: pt presents to triage for n/v since she was discharged from triage on Thursday, states she hasn't been able to keep anything down Medical History - Information : 1 Para: 0 Term: 0 : 0 Abortions: Spontaneous or Elective: 0 Number of Living Children: 0 - Gestational Age Gestational Age by CATHERINE (wks/days): 30 Weeks and 6 Days Review of Systems - Review of Systems Constitutional: No problems Breast: No problems ENT: No problems Cardiovascular: No problems Respiratory: No problems Gastrointestinal: No problems Genitourinary: No problems Musculoskeletal: No problems Neurological: No problems Skin: No problems Vital Signs - Temperature Temperature: 98.1 F Temperature Source: Temporal Artery Scan - Pulse Right Brachial Pulse Rate: 123 Pulse Assessment Method: Automatic Cuff - Respirations Respiratory Rate: 17 Oxygen Delivery Method: Room Air O2 Sat by Pulse Oximetry: 96 - Blood Pressure Right Arm Blood Pressure: 129/68 Blood Pressure Mean: 88 Blood Pressure Source: Automatic Cuff Medical Screen Scoring - Assessment - Baby A Baseline FHR: 140 Heart Rate - NICHD Category: Category I (Normal) NST: Reactive Physician Notification - Physician Notified Physician Notified Date: 09/15/23 Physician Notified Time: 13:06 Physician: Virgie Cooper New Order Received: Yes - Notification Comment Comment: cmp,cbc, ua all obtained, pt given 3 1/2 bags of LR, 1 dose of pepcid, reglan, and zofran, pt taking small amount of applesauce when she left, reactive nst for 31 weeks GA, pt has appt with Dr. Haynes on 09/21, instructed to stop using marijuana, and use zofran prn at home Maternal Triage Index - Maternal Triage Index Presenting for scheduled procedure w/no complaint: No - Stat/Priority 1 Stat Priority 1: No - Urgent/Priority 2 Urgent Priority 2: No - Prompt/Priority 3 Prompt Priority 3: No - Non-Urgent/Priority 4 Non-Urgent Priority 4: Yes Criteria Met for Priority 4: pt presents to triage for n/v since she was discharged from triage on Thursday, states she hasn't been able to keep anything down Disposition - Disposition OB Disposition: Triage, Discharge to home, Written follow up instructions reviewed Discharge Date: 09/15/23 Discharge Time: 16:25 I agree with the RN Medical Screening Exam: Yes Case reviewed; plan agreed upon as documented in EMR&OBIX.: Yes Diagnosis: VOMITING OF , UNSPECIFIED
== END 2023-09-15 16:25 | disposition home or self-care (01) ==
LOC: FBPOP 12:38
PROVIDERS: ATTEND Obstetrics & Gynecology Obstetrics
DX: O21.9 Vomiting of pregnancy, unspecified (principal); Z3A.30 30 weeks gestation of pregnancy; Z88.0 Allergy status to penicillin; Z91.011 Allergy to milk products
CPT/HCPCS: 59025; 96361; 96374; 96375; 36415; 80053; 85025; 81001; G0463; J2765; J2405; J3490; 99214

== ENCOUNTER 2023-10-15 08:30 | Outpatient (CLI) | payer OTHER | END 2023-10-15 16:00 | LOC: FBPOP 08:30 | PROVIDERS: ATTEND Obstetrics & Gynecology | CPT/HCPCS: 59025; 96361; 96374; 96375; 99214 ==

== ENCOUNTER 2023-10-15 21:10 | Inpatient (IN) | payer OTHER ==
[~2023-10-15 21:10] MED LIST: ACETAMINOPHEN IV (For NPO) 1,000 MG/100 ML VIAL ONE; DEXTROSE 5%-0.9% NACL 1,000 ML BAG IV ONE; FAMOTIDINE 20 MG/2 ML VIAL ONE; LIDOCAINE 4% PATCH TOPICAL ONE; METOCLOPRAMIDE 5 MG/ML 2 ML VIAL ONE; ONDANSETRON 4 MG/2 ML VIAL ONE; PYRIDOXINE 100 MG/ML 1 ML VIAL ONE; SODIUM CHLORIDE 0.9% 1,000 ML BAG ONE; SODIUM CHLORIDE 0.9% 100 ML BAG ONE; diphenhydrAMINE 50 MG/ML 1 ML VIAL ONE; traMADol 50 MG TAB ONE
[2023-10-15] MEDS ORDERED: cefTRIAXone 1 GM VIAL ONE (21:11)
[2023-10-15] MEDS ORDERED: cefTRIAXone 2 GM VIAL ONE (21:13)
[2023-10-16] MEDS ORDERED: FAMOTIDINE 20 MG/2 ML VIAL ONE (01:14)
[2023-10-16] MEDS ORDERED: CALCIUM CARBONATE 500 MG CHEWABLE PO ONE ×3 (08:18→20:36)
[2023-10-16] MEDS ORDERED: ACETAMINOPHEN TAB 325 MG TAB ONE ×2 (08:24→19:40)
[2023-10-16] MEDS ORDERED: ONDANSETRON 4 MG/2 ML VIAL ONE (16:46)
[2023-10-17] MEDS ORDERED: CALCIUM CARBONATE 500 MG CHEWABLE PO ONE (01:19)
[2023-10-17] MEDS ORDERED: ONDANSETRON 4 MG/2 ML VIAL ONE (03:56)
[2023-10-17] MEDS ORDERED: FAMOTIDINE 20 MG/2 ML VIAL ONE (03:59)
[2023-10-18] MEDS ORDERED: PROMETHAZINE 25 MG TAB PO PRN
[2023-10-18] MEDS ORDERED: NALOXONE 0.4 MG/ML 1 ML VIAL IVP PRN
[2023-10-18] MEDS ORDERED: MAG HYDROX/AL HYDROX/SIMETH 30 ML CUP PO PRN
[2023-10-18] MEDS ORDERED: ACETAMINOPHEN TAB 325 MG TAB PO PRN
[2023-10-18] MEDS ORDERED: CALCIUM CARBONATE 500 MG CHEWABLE PO PRN
[2023-10-18 05:30] LABS: African American GFR (CKD) >90 (>60 ml/min/1.73 sqM); Anion Gap 5 mmol/L; Blood Urea Nitrogen <2 mg/dL (7-17); Calcium 8.3 mg/dL (8.4-10.2); Carbon Dioxide 25 mmol/L (22-30); Chloride 105 mmol/L (98-107); Glucose 75 mg/dL (74-99); Non-African American GFR(CKD) >90 (>60 ml/min/1.73 sqM); Potassium 3.3 mmol/L (3.5-5.1); Sodium 135 mmol/L (137-145)
[2023-10-18] MEDS: ONDANSETRON 4 MG/2 ML VIAL IVP SCH (08:47)
[2023-10-18] MEDS ORDERED: LOPERAMIDE 2 MG CAP PO PRN (09:00)
[2023-10-18] MEDS: PANTOPRAZOLE 40 MG/10 ML VIAL IVP SCH (09:27)
[2023-10-18] MEDS: ONDANSETRON 4 MG/2 ML VIAL IVP PRN (11:18)
--- NOTE | 2023-10-18 13:15 | P.PN ---
Subjective addendum: Please note Electronic system was down up to 10/17/2023 and everything was documented on paper chart. This is a pleasant 17 years old female who was admitted through the control unit because she is 35 weeks . She was diagnosed with pneumonia based on CTA angio done in the emergency room showing no pulmonary embolism follows about bilateral basal pneumonia. Patient was complaining from vomiting and left lower side chest pain, vomiting is stopped and she eats well. Left side chest pain is minimal. She denies any other complaint. She has some cough but no phlegm Afebrile. She has mild leukocytosis about 14,000. Because she got contrast were ordered BMP today showing sodium 135, potassium 3.3. Creatinine normal at 0.4. Objective - Vital Signs Vital signs: Vital Signs Temp 98 F 10/18/23 08:00 Pulse 70 10/18/23 08:00 Resp 14 10/18/23 08:00 BP 123/73 10/18/23 08:00 Pulse Ox 100 10/18/23 08:00 FiO2 Intake & Output 10/17/23 10/18/23 10/18/23 18:59 06:59 18:59 Weight 62.142 kg - Exam GENERAL: The patient is alert and oriented x3, not in any acute distress. Well developed, well nourished. HEENT: Pupils are round and equally reacting to light. EOMI. No scleral icterus. No conjunctival pallor. Normocephalic, atraumatic. No pharyngeal erythema. No thyromegaly. CARDIOVASCULAR: S1 and S2 present. No murmurs, rubs, or gallops. PULMONARY: Chest is clear to auscultation, no wheezing , no crackles. ABDOMEN: Soft, nontender, nondistended, normoactive bowel sounds. No palpable organomegaly. MUSCULOSKELETAL: No joint swelling or deformity. EXTREMITIES: No cyanosis, clubbing, or pedal edema. NEUROLOGICAL: Gross neurological examination did not reveal any focal deficits. SKIN: No rashes. no petechiae. - Labs CBC & Chem 7: 10/18/23 04:46 Labs: Abnormal Lab Results - Last 24 Hours (Table) 10/18/23 Range/Units 04:46 Sodium 135 L (137-145) mmol/L Potassium 3.3 L (3.5-5.1) mmol/L BUN <2 L (7-17) mg/dL Creatinine 0.46 L (0.52-1.04) mg/dL Calcium 8.3 L (8.4-10.2) mg/dL Assessment and Plan Assessment: Community-acquired bilateral basal pneumonia Mild hypokalemia secondary to vomiting, vomiting is reactive to infection versus other causes, currently resolved , at 35 weeks of gestation, management is deferred to primary CLINICAL CARE MANAGER team Plan: Consult infectious disease team for antibiotic Encourage eating and drinking including juice. We expect low potassium to be corrected by itself tomorrow CLINICAL CARE MANAGER team on the case for the management of her and other related issue. Thank you for consulting us we recommend patient follow-up with PCP in 1 week after discharge.
[2023-10-19 00:27] VITALS: RESP 16
[2023-10-19 06:36] LABS: Basophils # (A) 0.1 k/uL (0-0.2); Basophils % (A) 1 %; Eosinophils # (A) 0.1 k/uL (0-0.7); Eosinophils % (A) 1 %; HCT 29.5 % (34.0-46.0); HGB 10.4 gm/dL (11.4-16.0); Lymphocytes # (A) 1.9 k/uL (1.0-4.8); Lymphocytes % (A) 21 %; MCH 28.7 pg (25.0-35.0); MCHC 35.1 g/dL (31.0-37.0); MCV 81.7 fL (80.0-100.0); Mean Platelet Volume 8.5; Monocytes # (A) 0.5 k/uL (0-1.0); Monocytes % (A) 5 %; Neutrophils # (A) 6.2 k/uL (1.3-7.7); Neutrophils % (A) 70 %; Platelet Count 244 k/uL (150-450); RBC 3.61 m/uL (3.80-5.40); RDW 14.1 % (11.5-15.5); WBC 8.9 k/uL (4.0-11.0)
[2023-10-19 06:53] LABS: African American GFR (CKD) >90 (>60 ml/min/1.73 sqM); Anion Gap 3 mmol/L; Blood Urea Nitrogen <2 mg/dL (7-17); Calcium 7.9 mg/dL (8.4-10.2); Carbon Dioxide 24 mmol/L (22-30); Chloride 106 mmol/L (98-107); Glucose 81 mg/dL (74-99); Non-African American GFR(CKD) >90 (>60 ml/min/1.73 sqM); Potassium 3.1 mmol/L (3.5-5.1); Sodium 133 mmol/L (137-145)
[2023-10-19 08:14] VITALS: BP 101/58; PULSE 70; TEMP 97.2
--- NOTE | 2023-10-19 08:43 | P.DS ---
Providers Date of admission: 10/15/23 21:10 Expected date of discharge: 10/19/23 Attending physician: Fam aHynes Consults: 10/17/23 13:30 Consult Physician Routine Consulting Provider: Magnolia Cooper Consult Reason/Comments: Antibiotic management Do you want consulting provider notified?: Already Contacted Primary care physician: Jean-Claude Bryant - Discharge Diagnosis(es) (1) Pneumonia Current Visit: Yes Status: Acute (2) 35 to 36 weeks gestation of Current Visit: Yes Status: Acute Hospital Course: The patient is a 17-year-old 1 para 0 admitted at 35+ weeks by good dating parameters. She initially presented to triage on labor and delivery with significant left flank and rib pain and was initially evaluated with the thought of nephrolithiasis as a diagnosis. She had significant nausea and vomiting. Her urinalysis was negative and obstetrically, the patient was found to be entirely stable with no resolution of her nausea and vomiting nor pain. She was sent to the emergency room for further medical workup for an etiology and was ultimately found to have multifocal pneumonia. She was admitted to the hospital where she was placed into the pneumonia protocol and had steady improvement from day-to-day. She has received 5 days now of inpatient IV antibiotics as well as supplemental Zithromax which I believe meets protocol. Obstetrically, she has remained stable with reactive NST every shift since admission. She is stable for discharge and will be discharged to follow-up with me as previously scheduled in the office and with primary care for follow-up regarding her pneumonia as deemed necessary by the internal medicine and infectious disease team. Further antibiotic therapy will be dictated by them as well. Instructions are to call for any significantly increasing symptoms or any new obstetrical concerns. She understood her instructions and agrees to follow-up as planned above. We await internal medicine and infectious disease to determine ongoing outpatient antibiotic therapy. Procedures: #1. IV hydration #2. IV antibiotic therapy #3. Internal medicine consultation #4. Infectious disease consultation Patient Condition at Discharge: Stable Plan - Discharge Summary New Discharge Prescriptions: No Action Omeprazole 1 dose PO DAILY Discharge Medication List Omeprazole 1 dose PO DAILY 07/26/23 [History] Follow up Appointment(s)/Referral(s): Fam Haynes MD [STAFF PHYSICIAN] - 1 Week Discharge Disposition: HOME SELF-CARE
[2023-10-19] MEDS ORDERED: POTASSIUM CHLORIDE ER 20 MEQ TAB.ER PO STA (11:26)
--- NOTE | 2023-10-19 11:29 | P.PN ---
Subjective Progress Note Date: 10/19/23 This is a pleasant 17 years old female who was admitted through the control unit because she is 35 weeks . She was diagnosed with pneumonia based on CTA angio done in the emergency room showing no pulmonary embolism follows about bilateral basal pneumonia. Patient was complaining from vomiting and left lower side chest pain, vomiting is stopped and she eats well. Left side chest pain is minimal. She denies any other complaint. She has some cough but no phlegm Afebrile. She has mild leukocytosis about 14,000. Because she got contrast were ordered BMP today showing sodium 135, potassium 3.3. Creatinine normal at 0.4. 10/18. Patient seen and examined. Potassium level this morning was 3.1, replacement ordered. Patient is being discharged by HOTEL REGISTRATION CLERK. Plan to give patient 2 more days of oral Ceftin. REVIEW OF SYSTEMS: CONSTITUTIONAL: No fever, no malaise,. CARDIOVASCULAR: No chest pain, no palpitations, no syncope. PULMONARY: No shortness of breath, no cough, GASTROINTESTINAL: No diarrhea, no nausea, no vomiting, no abdominal pain. NEUROLOGICAL: No headaches, no weakness, PHYSICAL EXAMINATION: GENERAL: The patient is alert and oriented x3, not in any acute distress. Well developed, well nourished. HEENT: Pupils are round and equally reacting to light. EOMI. No scleral icterus. No conjunctival pallor. Normocephalic, atraumatic. No pharyngeal erythema. No thyromegaly. CARDIOVASCULAR: S1 and S2 present. No murmurs, rubs, or gallops. PULMONARY: Chest is clear to auscultation, no wheezing or crackles. ABDOMEN: Soft, nontender, nondistended, normoactive bowel sounds. No palpable organomegaly. MUSCULOSKELETAL: No joint swelling or deformity. EXTREMITIES: No cyanosis, clubbing, or pedal edema. NEUROLOGICAL: Gross neurological examination did not reveal any focal deficits. SKIN: No rashes. Assessment and plan Community-acquired bilateral basal pneumonia Mild hypokalemia secondary to vomiting, vomiting is reactive to infection versus other causes, currently resolved , at 35 weeks of gestation, management is deferred to primary HOTEL REGISTRATION CLERK team Monitor vital signs Monitor CBC Monitor CMP Potassium replacement ordered. Being discharged on oral Ceftin for 2 more days Labs and medication were reviewed.. Continue same treatment. Continue with symptomatic treatment. Resume home medication. Monitor labs and vitals. DVT and GI prophylaxis. Further recommendations as per clinical course of the patient Dictation was produced using [employer] dictation software. please excuse any grammatical, word or spelling errors. Objective - Vital Signs Vital signs: Vital Signs Temp 97.2 F L 10/19/23 08:00 Pulse 70 10/19/23 08:00 Resp 16 10/19/23 08:00 BP 101/58 10/19/23 08:00 Pulse Ox 99 10/19/23 08:00 FiO2 - Labs CBC & Chem 7: 10/19/23 06:21 10/19/23 06:21 Labs: Abnormal Lab Results - Last 24 Hours (Table) 10/19/23 10/19/23 Range/Units 06:21 06:21 RBC 3.61 L (3.80-5.40) m/uL Hgb 10.4 L (11.4-16.0) gm/dL Hct 29.5 L (34.0-46.0) % Sodium 133 L (137-145) mmol/L Potassium 3.1 L (3.5-5.1) mmol/L BUN <2 L (7-17) mg/dL Creatinine 0.43 L (0.52-1.04) mg/dL Calcium 7.9 L (8.4-10.2) mg/dL
--- NOTE | 2023-11-03 13:12 | CT ---
Patient: Meche Mracial Ordering Physician: Unknown, Unknown ID: [id number] Phone, Pager: Phone: N/A Pager: N/A : 2005 Age/Gender: 17Y, F Primary Location: N/A Procedure: CT chest angio for PE Study Date: 10/15/2023 7:49:00 PM EXAMINATION TYPE: CT angio chest DATE OF EXAM: 10/15/2023 COMPARISON: HISTORY: Shortness of breath CONTRAST: CT chest with contrast and 3D reconstruction with MIP imaging is performed with IV Contrast, patient injected with 100 mL of Isovue 300. Contrast-enhanced CT of the chest was performed through the course of the pulmonary arteries with dino g and mediastinal window settings submitted. 3D reconstruction with MIP imaging was also performed. PULMONARY ARTERIES: The pulmonary arteries and their major tributaries are patent. I do not see tiffanie dence for sizable filling defect to suggest pulmonary embolic process. LUNGS: There is right lower lobe patchy infiltrate as well as patchy infiltrate at the bases. No evid ence for atelectasis. No pulmonary nodule or mass is detected. No pleural effusion. MEDIASTINUM: Thoracic aorta is of normal caliber,however, evaluation is limited given timing of the contrast bolus. If there is concern for thoracic aortic pathology consider JULIO. Correlate clinicall y . The heart is not enlarged. No evidence for mediastinal mass. No mediastinal lymph nodes greater than 1cm. HILAR STRUCTURES: No evidence for mass. No hilar lymph nodes greater than 1 cm. UPPER ABDOMEN: No significant abnormality is seen. IMPRESSION: 1. No evidence for Pulmonary embolism at this time. 2. Bibasilar pneumonia.
--- NOTE | 2023-11-11 15:45 | US ---
Patient: Meche Marcial Ordering Physician: Unknown, Unknown ID: [id number] Phone, Pager: Phone: N/ A Pager: N/A : 2005 Age/Gender: 17Y, N/A Primary Location: N/A Procedure: US OB limited Study Date: 10/15/2023 6:40:00 PM history: 35 weeks , due date 11/18/2023. llq pain. Dr beltran viability tech impression: Fetus is in cephalic presentation at this time. Heart rate measures 134 bpm. Single viable intrauteri ne .
--- NOTE | 2023-11-11 15:45 | US ---
Patient: Meche Marcial Ordering Physician: Unknown, Unknown ID: [id number] Phone, Pager: Phone: N/ A Pager: N/A : 2005 Age/Gender: 17Y, N/A Primary Location: N/A Procedure: US ABDOMEN COMPLETE Study Date: 10/15/2023 6:44:00 PM EXAMINATION TYPE: US abdomen complete DATE OF EXAM: 10/15/2023 COMPARISON: NONE CLINICAL INDICATION: Unknown, old with history of ; TECHNIQUE: Multiple sonographic images of the abdomen are obtained. FINDINGS: history: patient 35 weeks . llq pain for a few days tech impression: slightly limited due to presence of fetus, intercostal views used liver: 11.9, wnl as best seen gallbladder: WNL, wall 0.2cm. CBD: 0.3cm, WNL pancreas: unable to visualize spleen: 11.4cm. appears wnl as best seen rt kidney: 12.3 x 6.1 x 6.7. Upper limits of normal in size, hydro. lt kidney: 12.1 x 6.0 x 5.0cm. Upper limits of normal in size. prominent renal vasculature vs other IMPRESSION: Right-sided hydronephrosis .
== END 2023-10-19 11:44 | disposition home or self-care (01) | DRG 566 ==
LOC: 4FBP 21:10 → UNDODISIN 21:51
PROVIDERS: ADMIT Obstetrics & Gynecology; ATTEND Obstetrics & Gynecology
DX: O99.513 Diseases of the respiratory system complicating pregnancy, third trimester (principal); Z3A.36 36 weeks gestation of pregnancy; O99.283 Endocrine, nutritional and metabolic diseases complicating pregnancy, third trimester; O21.2 Late vomiting of pregnancy; J18.9 Pneumonia, unspecified organism; E87.6 Hypokalemia; Z88.1 Allergy status to other antibiotic agents; Z88.0 Allergy status to penicillin; Z91.011 Allergy to milk products
CPT/HCPCS: 71275; 76700; 76815; 80048; 84145; 85025; 87086; 93005; 96361; 96365; 96367; 96375; 99291

== ENCOUNTER 2023-11-07 11:43 | Inpatient (IN) | payer OTHER ==
[2023-11-07] MEDS ORDERED: TRANEXAMIC 1,000 MG/100ML-NACL 1,000 MG in EMPTY BAG 1 BAG IV PRN (13:17)
[2023-11-07] MEDS ORDERED: TERBUTALINE 1 MG/ML VIAL SQ PRN (13:17)
[2023-11-07] MEDS ORDERED: METHYLERGONOVINE 0.2 MG/ML 1 ML AMP IM PRN (13:17)
[2023-11-07] MEDS ORDERED: miSOPROStoL 200 MCG TAB RECTAL PRN (13:17)
[2023-11-07] MEDS ORDERED: LIDOCAINE 0.5% (PF) 5 MG/ML (50 ML SDV) SQ PRN (13:17)
[2023-11-07] MEDS ORDERED: OXYTOCIN 10 UNIT/ML 1 ML VIAL IM PRN (13:17)
[2023-11-07] MEDS ORDERED: CARBOPROST TROMETHAMINE 250 MCG/ML 1 ML AMP IM PRN (13:17)
[2023-11-07] MEDS ORDERED: miSOPROStoL 200 MCG TAB PO PRN (13:17)
[2023-11-07] MEDS: LACTATED RINGERS 1,000 ML IV SCH (13:30)
[2023-11-07 13:40] LABS: Basophils # (A) 0.1 k/uL (0-0.2); Basophils % (A) 0 %; Eosinophils % (A) 0 %; HCT 37.7 % (34.0-46.0); HGB 12.1 gm/dL (11.4-16.0); Hypochromasia Slight; Lymphocytes # (A) 1.6 k/uL (1.0-4.8); Lymphocytes % (A) 12 %; MCH 26.7 pg (25.0-35.0); MCHC 32.1 g/dL (31.0-37.0); MCV 83.1 fL (80.0-100.0); Mean Platelet Volume 8.2; Monocytes # (A) 0.6 k/uL (0-1.0); Monocytes % (A) 4 %; Neutrophils # (A) 10.5 k/uL (1.3-7.7); Neutrophils % (A) 81 %; Platelet Count 231 k/uL (150-450); RBC 4.53 m/uL (3.80-5.40); RDW 14.1 % (11.5-15.5)
[2023-11-07] MEDS ORDERED: SODIUM CHLORIDE 0.9% 250 ML BAG ONE (14:00)
[2023-11-07] MEDS ORDERED: fentaNYL (PF) 50 MCG/ML 5 ML AMP ONE (14:00)
[2023-11-07] MEDS ORDERED: ROPIVACAINE 5 MG/ML 30 ML VIAL ONE (14:00)
[2023-11-07 14:18] LABS: Amphetamine Screen,Urine Not Detected (NotDetected); Barbiturate Screen,Urine Not Detected (NotDetected); Benzodiazepines Screen,Urine Not Detected (NotDetected); Cocaine Screen,Urine Not Detected (NotDetected); Methadone Screen, Urine Not Detected (NotDetected); Opiate Screen,Urine Not Detected (NotDetected); Oxycodone Screen, Urine Not Detected (NotDetected); Phencyclidine Screen,Urine Not Detected (NotDetected); Tricyclic Antidepressant,Urine Not Detected (NotDetected); Urn Cannabinoid Scrn Detected (NotDetected)
--- NOTE | 2023-11-07 15:21 | P.HPOB ---
History of Present Illness H&P Date: 11/07/23 Chief Complaint: IUP at 38-3/7 weeks, intrauterine growth restriction, labor 17-year-old 1 para 0 at 38-3/7 weeks, estimated due date of 11/17 based on 9-week ultrasound. Patient was diagnosed with intrauterine growth restriction at 37 weeks. Estimated weight of 5 pounds, 3rd percentile. Patient has been undergoing testing which has been normal in nature. Today patient notes good movement. She states contractions began around 4 AM. Patient denies loss of fluid. On blood work this blood patient has a blood type of A-, rubella status immune, hepatitis B surface engine negative, HIV negative RPR is nonreactive grew beta strep culture is negative. Review of Systems Constitutional: Denies chills, Denies fatigue, Denies fever Ears, nose, mouth and throat: Denies headache Cardiovascular: Denies leg edema Respiratory: Denies dyspnea Gastrointestinal: Denies constipation, Denies diarrhea, Denies nausea, Denies vomiting Genitourinary: Reports Past Medical History Past Medical History: No Reported History Additional Past Medical History / Comment(s): [facility] History of Any Multi-Drug Resistant Organisms: None Reported Past Surgical History: No Surgical Hx Reported, Ear Surgery Smoking Status: Never smoker Medications and Allergies Home Medications Medication Instructions Recorded Confirmed Type Omeprazole 1 dose PO DAILY 07/26/23 11/07/23 History Allergies Allergy/AdvReac Type Severity Reaction Status Date / Time amoxicillin Allergy Rash/Hives Verified 09/15/23 12:43 penicillin G Allergy Rash/Hives Verified 11/07/23 11:56 milk AdvReac Unknown Verified 09/15/23 12:43 Exam Osteopathic Statement: *. No significant issues noted on an osteopathic structural exam other than those noted in the History and Physical/Consult. Vital Signs Temp Pulse Resp BP Pulse Ox 11/07/23 11:55 97.5 F L 90 16 132/74 99 Intake and Output 11/07/23 11/07/23 11/07/23 06:59 14:59 22:59 Other: # Voids 3 Weight 65.317 kg Targeted physical exam is performed this date General Is well-nourished well- developed female in no acute distress, patient did receive epidural prior to my arrival. Bleeding is noted to be nonlabored, abdomen is noted to be gravid, on cervical exam she is 5-6/100/-1 station, heart tones are noted to be category 1 and she is lisandro every 2 to 4 minutes. Results Result Diagrams: 11/07/23 13:28 Abnormal Lab Results - Last 24 Hours (Table) 11/07/23 11/07/23 Range/Units 13:28 13:48 WBC 13.0 H (4.0-11.0) k/uL Neutrophils # 10.5 H (1.3-7.7) k/uL U Marijuana (THC) Screen Detected H (NotDetected) Assessment and Plan (1) 38 weeks gestation of Current Visit: Yes Status: Acute Code(s): Z3A.38 - 38 WEEKS GESTATION OF SNOMED Code(s): 29463938 (2) Intrauterine growth restriction (IUGR) affecting care of mother, third trimester, single gestation Current Visit: Yes Status: Acute Code(s): O36.5930 - MATERN CARE FOR OTH OR SUSP POOR FETL GRTH, THIRD TRI, UNSP SNOMED Code(s): 298232171 (3) Active labor Current Visit: Yes Status: Acute Code(s): PSS7495 - SNOMED Code(s): 554159161 Plan: 17-year-old 1 para 0 at 38-3/7 weeks that presents to labor and delivery in active labor. Patient did request epidural soon after admission. Epidural was placed without difficulty by the anesthesia department. Amniotomy is performed and meconium stained fluid is appreciated. Patient is counseled on findings of amniotic fluid, questions are answered.
[2023-11-07] MEDS: OXYTOCIN 30 UNITS/500 ML NS 30 UNIT in SALINE 1 500ML.BAG IV SCH (17:00)
[2023-11-07] MEDS ORDERED: ACETAMINOPHEN TAB 325 MG TAB PO PRN (19:08)
[2023-11-07] MEDS ORDERED: SIMETHICONE 80 MG CHEWABLE PO PRN (19:08)
[2023-11-07] MEDS ORDERED: diphenhydrAMINE 25 MG CAP PO PRN (19:08)
[2023-11-07] MEDS ORDERED: BENZOCAINE/MENTHOL SPRAY 1 GM/SPRAY AEROSOL TOPICAL PRN (19:08)
[2023-11-07] MEDS ORDERED: LANOLIN CREAM 1 GM TUBE TOPICAL PRN (19:08)
[2023-11-07] MEDS ORDERED: diphenhydrAMINE 50 MG CAP PO PRN (19:08)
[2023-11-07] MEDS ORDERED: ZOLPIDEM 5 MG TAB PO PRN (19:08)
[2023-11-07] MEDS ORDERED: diphenhydrAMINE 50 MG/ML 1 ML VIAL IVP PRN (19:08)
[2023-11-07] MEDS ORDERED: HYDROCORTISONE 2.5% RECTAL CREAM 30 GM TUBE RECTAL PRN (19:08)
--- NOTE | 2023-11-07 19:08 | P.PROBDLV ---
Vaginal Delivery Note - . Vaginal Delivery Note: 17-year-old 1 para 0 that presented to labor and delivery at 38-3/7 weeks, estimated due date of 925 based on first trimester ultrasound. Patient noted regular painful contractions that began at 4 AM. Patient was admitted and did request epidural after admission. Patient underwent amniotomy and meconium stained fluid was appreciated. Patient made good progress toward complete dilation. Once completely dilated patient began pushing and had a normal spon taneous vaginal delivery of a viable female infant at 1858, weight of 5 pounds 5.4 ounces. Spontaneous cry was noted at . After 2-minute delay the umbilical cord was doubly clamped and cut, placenta was delivered spontaneously intact with a three-vessel cord being noted. Uterus was noted to be firm and below the umbilicus, estimated blood loss 100 cc On inspection the patient's vaginal vault bilateral periurethral lacerations were noted, quite superficial and nonbleeding no repair was necessary All counts were noted to be correct x 2. Patient and infant tolerated delivery well and are resting comfortably.
[2023-11-07] MEDS: IBUPROFEN 600 MG TAB PO SCH (20:36)
[2023-11-07] MEDS: SENNOSIDES-DOCUSATE SODIUM 1 EACH TAB PO SCH (20:36)
[2023-11-07] MEDS: ONDANSETRON 4 MG/2 ML VIAL IVP PRN (22:40)
[2023-11-07] MEDS: diphenhydrAMINE 50 MG/ML 1 ML VIAL IVP PRN (22:40)
[2023-11-07] MEDS: CALCIUM CARBONATE 500 MG CHEWABLE PO PRN (22:56)
[2023-11-08 07:36] VITALS: RESP 18
--- NOTE | 2023-11-08 11:37 | P.DS ---
Providers Date of admission: 11/07/23 13:11 Expected date of discharge: 11/08/23 Attending physician: Fam Haynes Primary care physician: Stated None - Discharge Diagnosis(es) (1) 38 weeks gestation of Current Visit: Yes Status: Acute (2) Intrauterine growth restriction (IUGR) affecting care of mother, third trimester, single gestation Current Visit: Yes Status: Acute (3) Active labor Current Visit: Yes Status: Acute (4) Normal vaginal delivery Current Visit: Yes Status: Acute Hospital Course: Is a 17-year-old 1 now para 1 that presented to labor and delivery with complaints of regular painful contractions. Patient was noted to be in active labor. Patient's care has been complicated by diagnosis of intrauterin e growth restriction around 37 weeks. Patient underwent testing which has been normal thus far. Patient had an estimated due date of 925 based on a first trimester ultrasound. Patient was admitted to labor and delivery and did request epidural soon after admission. Anesthesia was notified and epidural was placed without difficulty by the anesthesia department. Patient underwent amniotomy and thin meconium stained fluid was appreciated. Patient made good progress toward complete dilation. Once completely dilated she began pushing and had a normal spontaneous vaginal delivery of a viable female at 1858, weight of 5 pounds 5.4 ounces. No vaginal lacerations were appreciated on inspection after delivery. Patient's course has been uneventful. In this day #1 she is ambulating and voiding without difficulty. She is tolerating a regular diet without nausea or vomiting. She states her pain is well- controlled. She would like discharge home at 24 hours of possible. Patient Condition at Discharge: Good Plan - Discharge Summary New Discharge Prescriptions: No Action Omeprazole 1 dose PO DAILY Discharge Medication List Omeprazole 1 dose PO DAILY 07/26/23 [History] Follow up Appointment(s)/Referral(s): Fam Haynes MD [STAFF PHYSICIAN] - 6 Weeks Patient Instructions/Handouts: Vaginal Delivery (DC), Vaginal Delivery (GEN) Activity/Diet/Wound Care/Special Instructions: No tub baths or intercourse until 6 weeks . Ecgu-efn-wlietss ibuprofen 600 mg or 3 tablets every 6 hours as needed for pain. Routine check at 6 weeks. Should patient have any concerns prior to this visit she is urged to call the office. Discharge Disposition: HOME SELF-CARE
[2023-11-08 14:39] VITALS: BP 110/62; PULSE 84; TEMP 98.2
== END 2023-11-08 19:05 | disposition home or self-care (01) | DRG 560 ==
LOC: FBPOP 11:43 → 4FBP 13:11
PROVIDERS: ADMIT Obstetrics & Gynecology Obstetrics; ATTEND Obstetrics & Gynecology
PROC: 10E0XZZ Delivery of Products of Conception, External Approach (ICD-10-PCS; principal; 2023-11-07)
PROC: 10907ZC Drainage of Amniotic Fluid, Therapeutic from Products of Conception, Via Natural or Artificial Opening (ICD-10-PCS; 2023-11-07)
DX: O36.5930 Maternal care for other known or suspected poor fetal growth, third trimester, not applicable or unspecified (principal); O77.0 Labor and delivery complicated by meconium in amniotic fluid; O71.82 Other specified trauma to perineum and vulva; Z3A.38 38 weeks gestation of pregnancy; Z37.0 Single live birth; Z88.0 Allergy status to penicillin
CPT/HCPCS: 59025; 80306; 85025; 86850; 86900; 86901; 88307; 99213

== ENCOUNTER 2023-12-10 16:55 | Emergency (ER) | payer OTHER ==
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
--- NOTE | 2023-12-10 17:58 | US ---
EXAMINATION TYPE: US transvaginal DATE OF EXAM: 12/10/2023 COMPARISON: NONE CLINICAL INDICATION: Female, 18 years old with history of vaginal bleeding; Patient states cramping and vaginal bleeding. 1 month . TECHNIQUE: Transvaginal (TV). Transvaginal sonographic images were medically necessary to better as sess the following anatomy: Endometrium FINDINGS: Date of LMP: 1 month EXAM MEASUREMENTS: Uterus: 9.3 x 5.6 x 7.0 cm Endometrial Stripe: 0.5 cm Right Ovary: 3.2 x 1.9 x 1.8 cm Left Ovary: 3.4 x 2.2 x 2.0 cm 1. Uterus: Retroverted wnl as best seen 2. Endometrium: wnl 3. Right Ovary: follicular changes seen 4. Left Ovary: follicular changes seen Spectral, color and waveform doppler imaging shows good arterial and venous flow within the ovaries ; there is no evidence for ovarian torsion. 5. Bilateral Adnexa: wnl 6. Posterior cul-de-sac: wnl IMPRESSION: 1. Bilateral ovarian follicles 2. No suspicious retained products of conception within the uterus by ultrasound [facility], Workstation: [facility], 12/10/2023 5:55 PM
[2023-12-10 19:42] LABS: ALT 29 U/L (4-34); AST 26 U/L (14-36); African American GFR (CKD) >90 (>60 ml/min/1.73 sqM); Albumin 4.4 g/dL (3.5-5.0); Alkaline Phosphatase 59 U/L (38-126); Anion Gap 9 mmol/L; Blood Urea Nitrogen 10 mg/dL (7-17); Calcium 9.4 mg/dL (8.4-10.2); Carbon Dioxide 26 mmol/L (22-30); Chloride 105 mmol/L (98-107); Glucose 78 mg/dL (74-99); Non-African American GFR(CKD) >90 (>60 ml/min/1.73 sqM); Potassium 3.7 mmol/L (3.5-5.1); Sodium 140 mmol/L (137-145); Total Bilirubin 0.3 mg/dL (0.2-1.3); Total Protein 6.9 g/dL (6.3-8.2)
[2023-12-10 20:01] LABS: Basophils % (A) 0 %; Eosinophils # (A) 0.1 k/uL (0-0.7); Eosinophils % (A) 2 %; HCT 38.5 % (34.0-46.0); HGB 12.8 gm/dL (11.4-16.0); Lymphocytes # (A) 2.6 k/uL (1.0-4.8); Lymphocytes % (A) 34 %; MCH 26.6 pg (25.0-35.0); MCHC 33.3 g/dL (31.0-37.0); MCV 79.9 fL (80.0-100.0); Mean Platelet Volume 7.6; Monocytes # (A) 0.4 k/uL (0-1.0); Monocytes % (A) 6 %; Neutrophils # (A) 4.3 k/uL (1.3-7.7); Neutrophils % (A) 55 %; Platelet Count 246 k/uL (150-450); RBC 4.82 m/uL (3.80-5.40); WBC 7.7 k/uL (4.0-11.0)
[2023-12-10] MEDS: ACETAMINOPHEN TAB 500 MG TAB PO STA (21:32)
[2023-12-10] MEDS: SODIUM CHLORIDE 0.9% 1,000 ML IV ONE (21:33)
[2023-12-10 21:57] VITALS: BP 121/68; PULSE 102; RESP 16; TEMP 98
== END 2023-12-10 21:35 | disposition home or self-care (01) ==
LOC: EC 16:55
CPT/HCPCS: 36415; 76830; 80053; 83605; 85025; 93975; 99284